=== PATIENT | female | born 1995 | race Caucasian/White ===

== ENCOUNTER 2020-08-07 17:51 | Emergency (ER) | payer BC ==
[~2020-08-07] VITALS: Ht 149.9 cm; Wt 86.0 kg
--- NOTE | 2020-08-07 18:01 | NUR ---
LATE ENTRY FOR 1800: PT BIBA FOR WITNESSED SEIZURE AT WORK TODAY, LASTING APPROX 3 MIN. 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 PT DID BITE OWN TONGUE, DRIED BLOOD NOTED TO MOUTH WITH BITE TO RIGHT SIDE OF TONGUE. SEIZURE PRECAUTIONS IN PLACE . ALL MONITORS IN PLACE. PT A&OX4, HOWEVER IT TOOK HER SEVERAL SECONDS TO REMEMBER THE MONTH. NEURO INTACT. AWAITING MD AND DISPO.
[2020-08-07] MEDS ORDERED: ACETAMINOPHEN 500 MG TABLET PO ONE (18:30)
[2020-08-07] MEDS ORDERED: ACETAMINOPHEN 500 MG TABLET ONE (18:40)
[2020-08-07 18:44] VITALS: BP 117/66
[2020-08-07 18:44] LABS: BASOPHILS % (AUTO) 0 % (0-1); EOSINOPHILS % (AUTO) 1 % (1-7); LYMPHOCYTES % (AUTO) 20 % (22-44); MEAN CORPUSCULAR HEMOGLOBIN 31.6 pg (27.0-34.8); MEAN CORPUSCULAR HGB CONC 34.2 g/dL (32.4-35.8); MEAN PLATELET VOLUME 7.9 fL (7.4-10.4); MONOCYTES % (AUTO) 4 % (2-9); NEUTROPHILS % (AUTO) 74 % (42-75); PLATELET COUNT 316 x10^3/uL (130-400); RED BLOOD COUNT 4.68 x10^6/uL (3.82-5.3); RED CELL DISTRIBUTION WIDTH 13.3 % (9.6-15.2)
[2020-08-07 18:58] LABS: ALBUMIN 3.6 g/dL (3.4-5.0); ANION GAP 5 mmol/L (5-15); CALCIUM 8.7 mg/dL (8.5-10.1); CHLORIDE 109 mmol/L (98-107)
--- NOTE | 2020-08-07 19:00 | NUR ---
REPORT GIVEN TO STEVE MONTGOMERY AT BEDSIDE. 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 NO SEIZURE ACTIVITY NOTED IN ED. AWAITING LABS AND DISPO.
[2020-08-07 19:03] LABS: ALANINE AMINOTRANSFERASE 42 U/L (12-78); ALKALINE PHOSPHATASE 79 U/L (45-117); BILIRUBIN,TOTAL 0.2 mg/dL (0.2-1.0); CREATININE 0.73 mg/dL (0.55-1.02); TOTAL PROTEIN 7.5 g/dL (6.4-8.2)
== END 2020-08-07 19:55 | disposition home or self-care (01) ==
LOC: ED 19:10
DX: G40.409 Other generalized epilepsy and epileptic syndromes, not intractable, without status epilepticus (principal)
CPT/HCPCS: 36415; 80053; 84703; 85025; 99283